=== PATIENT | female | born 1945 | race Caucasian/White ===

== ENCOUNTER → 2017-01-12 | Day surgery (SDC) | payer MEDICARE, BC ==
[~2017-01-12] MED LIST: ALTACE PO; BENAZEPRIL-HCT1 EACH PO; BISOPROLOL/HCTZ1 TA3 PO; ESCITALOPRAM OX20 MG PO; EXCEDRIN MIGRAI1 TA1 PO; LOTENSIN20 MG PO; RANITIDINE HCL300 MG PO; SYNTHROID PO; ZIAC PO; ZOCOR20 MG PO; ZOLOFT PO
--- NOTE | ~2017-01-12 | OR ---
Unit #: [id number] #: [id number] Patient: WOODY BARNETT [id number] [address] [id number] [id number] MR#: [id number] NAME: WOODY BARNETT ROOM: Date of Procedure: 01/12/2017 Admission Date: 01/12/2017 Surgeon: Bruce Bravo M.D. : 1945 Attending Physician: Bruce Bravo M.D. Primary Care Physician: Dania Ahn M.D. OPERATIVE REPORT PROCEDURE PERFORMED Esophagogastroduodenoscopy with biopsy. INDICATIONS FOR PROCEDURE The patient with epigastric pain and atypical chest pain, undergoing evaluation with upper endoscopy. Cardiac workup has been negative. MEDICATIONS Monitored anesthesia. POSTOPERATIVE FINDINGS 1. Hiatal hernia about 2 cm in size. 2. Mild gastritis. Biopsies taken. 3. Normal duodenum and distal duodenum. PLAN PPI therapy and reflux precautions. Continues to have symptoms. Further workup to be considered. DESCRIPTION OF PROCEDURE The patient was explained of the procedure risk and benefits along with risk and benefits of anesthesia. She was brought to the endoscopy room. Propofol anesthesia was given. Bite block was placed. Scope was passed down the mouth into esophagus, stomach, duodenum, and distal duodenum. Findings as described. Biopsies taken. Gently, the scope was pulled out. She tolerated it well. No major complications were seen. Dictated by... Sia Knight/zandra TD: 01/12/2017 18:10 JOB #: [id number] Unit #: [id number] #: [id number] Patient: WOODY BARNETT OPERATIVE REPORT Page 1 of 1 X Bruce Bravo MD PROCEDURE OPERATIVE NOTE
== END | disposition home or self-care (01) ==
LOC: COPS 12:28
DX: K29.50 Unspecified chronic gastritis without bleeding (principal); K44.9 Diaphragmatic hernia without obstruction or gangrene; K21.9 Gastro-esophageal reflux disease without esophagitis; I10 Essential (primary) hypertension; E78.5 Hyperlipidemia, unspecified; E03.9 Hypothyroidism, unspecified; Z79.899 Other long term (current) drug therapy; Z90.49 Acquired absence of other specified parts of digestive tract; Z98.51 Tubal ligation status
CPT/HCPCS: 88305; 88312